=== PATIENT | female | born 2000 | race Caucasian/White ===

== ENCOUNTER 2021-01-08 22:18 | Emergency (ER) | payer OTHER, SELFPAY ==
[2021-01-08 22:19] VITALS: BP 144/80; PULSE 97; RESP 16; TEMP 36.2; O2SAT 97; BMI 27.4
--- NOTE | 2021-01-08 22:45 | RAD_ITS ---
STUDY: X-RAY - RIGHT RADIUS AND ULNA REASON FOR EXAM: Female, 20 years old. bruising and pain in right forearm after wrestling and volleyball today. TECHNIQUE: 2 view(s) of the forearm. COMPARISON: None. FINDINGS: There is no demonstrated soft tissue swelling. Normal visualized radius. Normal visualized ulna. RAD/Forearm 2 Views IMPRESSION: Normal x-ray examination of the radius and ulna. Electronically Signed: Jaspal Sorto MD at 23:08 EDT , Service support ,
--- NOTE | 2021-01-08 23:28 | ED.DCSUM_ITS ---
- ER Visit Summary Date of Service: 01/08/21 Chief Complaint: Roughhousing History of Present Illness: The patient is a 20 F patient presents with right forearm pain after roughhousing and playing volleyball. There is bruising to the area. Physical Examination: Ecchymosis to her mid right forearm with mild tenderness to the area. Compartments soft. Neurovascular intact distally. No deformity. Skin intact. Test Results: X-rays reviewed by the radiologist and myself are negative. Emergency Department Course and Treatment: Patient declined pain meds. X-rays negative. Patient will be discharged. She was given a note for school. Rest, ice, elevate. [id number] remedies for pain. Treatment Plan: As above Disposition: Discharge Impression: Contusion right forearm This note was generated with [employer] dictation software. It may contain incorrect words, spelling, and punctuation that were not noted in review of the chart prior to signing ED Disposition - Plan for ED Patient: Referrals: NOT,DEFINED [Primary Care Provider] -
--- NOTE | 2021-01-08 23:29 | ED.DEP ---
ED Disposition - Plan for ED Patient: Instructions: ED Contusion, Upper Extremity Referrals: NOT,DEFINED [Primary Care Provider] -
[2021-01-08 23:44] VITALS: PULSE 91; RESP 15; O2SAT 98
== END 2021-01-08 23:44 | disposition home or self-care (01) ==
LOC: ED 23:38
PROVIDERS: Emergency Provider Emergency Medicine
DX: S50.11XA Contusion of right forearm, initial encounter (principal); X58.XXXA Exposure to other specified factors, initial encounter; Y93.72 Activity, wrestling; Y93.68 Activity, volleyball (beach) (court); Y92.9 Unspecified place or not applicable
CPT/HCPCS: 73090; 99282

== ENCOUNTER 2022-08-12 13:55 | Outpatient (CLI) | payer BC, SELFPAY ==
--- NOTE | 2022-08-12 14:05 | CT_ITS ---
STUDY: CT BRAIN WITHOUT CONTRAST REASON FOR EXAM: Female, 22 years old. SYNCOPE. Seizure. RADIATION DOSAGE (If Supplied By Facility): CTDIvol = ( 47.06 ) mGy, DLP = ( 872.68 ) mGycm TECHNIQUE: Transaxial CT imaging of the brain was performed without administration of intravenous contrast material. Individualized dose optimization techniques were used for this CT. COMPARISON: No relevant priors. FINDINGS: Normal soft tissue structures. Normal calvarium. Normal size ventricles and extra-axial spaces for the patient''s age. Normal white matter tracts of the cerebral hemispheres. Normal basal ganglia and thalami. Normal brainstem. Normal cerebellum. There is no intracranial hemorrhage. There are no findings of an acute ischemic infarction. Normal visualized paranasal sinuses. CT/Brain/Head without Contrast IMPRESSION: Normal unenhanced CT scan of the brain. Electronically Signed: Asif Puentes MD at 14:41 EST ,
== END 2022-08-12 23:59 | disposition home or self-care (01) ==
LOC: CT 14:03
PROVIDERS: Visit Provider Family Medicine
DX: G40.89 Other seizures (principal); R55 Syncope and collapse
CPT/HCPCS: 70450

== ENCOUNTER → 2022-09-02 | Outpatient (CLI) | payer BC, SELFPAY ==
--- NOTE | 2022-09-02 13:02 | ECHOD_ITS ---
Reason For Study: SEIZURES Procedure This was a 2D Doppler, Color Flow transthoracic echocardiogram. Exam performed in department. Left Ventricle Normal LV size. Left ventricular systolic function is normal. The estimated ejection fraction is 55 %. Normal diastology for age. No regional wall motion abnormalities noted. Right Ventricle Normal RV size. Normal systolic function. Atria Normal left atrium. Normal right atrium. Mitral Valve Normal mitral valve. Tricuspid Valve Normal tricuspid valve. Aortic Valve Trisinus/trileaflet aortic valve. Normal aortic valve. Pulmonic Valve Normal pulmonic valve. Great Vessels Normal aortic root. The pulmonary artery is normal size. Normal inferior vena cava. Pericardium/Pleural No pericardial effusion. MMode/2D Measurements & Calculations LVIDd: 4.9 cm IVSd: 0.82 cm Ao root diam: 3.1 cm LVIDs: 3.3 cm LVPWd: 0.94 cm RVDd: 2.7 cm FS: 31.5 % LAV(MOD-bp): 26.3 ml LVAd ap4: 32.4 cm2 SV(MOD-sp4): 69.5 ml LAV(MOD-bp) Indexed: 17.0 ml/m2 LVLd ap4: 8.0 cm LAV(MOD-sp2): 25.9 ml EDV(MOD-sp4): 110.2 ml LAV(MOD-sp4): 23.4 ml EDV(sp4-el): 111.8 ml LVAs ap4: 18.1 cm2 LVLs ap4: 6.8 cm ESV(MOD-sp4): 40.7 ml ESV(sp4-el): 40.5 ml EF(MOD-sp4): 63.1 % EF(sp4-el): 63.7 % SV(sp4-el): 71.3 ml LA A4 area: 12.4 cm2 LA dimension(2D): 3.1 cm RA A4 area: 10.3 cm2 Time Measurements MV dec time: 0.18 sec Doppler Measurements & Calculations MV E max riaz: 93.5 cm/sec Lat Peak E' Riaz: 17.5 cm/sec Med Peak E' Riaz: 14.8 cm/sec MV A max riaz: 69.7 cm/sec E/E' lat: 5.4 E/E' med: 6.3 MV E/A: 1.3 Ao V2 max: 147.9 cm/sec LV V1 max: 116.9 cm/sec PA V2 max: 112.9 cm/sec Ao max P.7 mmHg LV V1 max P.5 mmHg ECHO/Echo Complete Interpretation Summary Normal LV size. Left ventricular systolic function is normal. The estimated ejection fraction is 55 %. Normal diastology for age. Structurally normal valves. Ordering Physician: Terry Nelson Referring Physician: Terry Nelson Performed By: Elsa Savage RDCS
--- NOTE | 2022-09-02 13:02 | CDU_ITS ---
Reason For Study: SYNCOPE/COLLAPSE, OTHER SEIZURES Rt. Velocities/BP Lt. Velocities/BP Prox CCA 94.8/14.5 cm/sec. Prox CCA 137.9/18.8 cm/sec. Mid CCA 98.1/24.5 cm/sec. Mid CCA 114.6/23.7 cm/sec. Dist CCA 91.6/25.6 cm/sec. Dist CCA 93.7/21.2 cm/sec. Prox ICA 88.8/20.0 cm/sec. Prox ICA 60.1/20.4 cm/sec. Mid ICA 66.7/28.6 cm/sec. Mid ICA 93.0/27.0 cm/sec. Dist ICA 94.9/34.8 cm/sec. Dist ICA 86.4/36.9 cm/sec. Rt. ICA/CCA = 94.9/98.1=1.0. 93.0/114.6=0.8. Prox ECA 97.1/12.4 cm/sec. Prox ECA 49.7/11.0 cm/sec. Rt. Vert. 46.6/11.6 cm/sec. Lt. Vert. 72.1/11.0 cm/sec. Right Extracranial There is no significant atherosclerotic plaque noted in the right common carotid artery. There is no significant atherosclerotic plaque noted in the right internal carotid artery. There is no significant atherosclerotic plaque noted in the right external carotid artery. Antegrade flow is noted in the right vertebral artery. Left Extracranial There is no significant atherosclerotic plaque noted in the left common carotid artery. There is no significant atherosclerotic plaque noted in the left internal carotid artery. There is no significant atherosclerotic plaque noted in the left external carotid artery. Antegrade flow is noted in the left vertebral artery. VL/Carotid Duplex Ultrasound Interpretation Summary Normal right extracranial internal carotid. Normal left extracranial internal carotid. Patent and antegrade vertebrals bilaterally. Ordering Physician: Omar, Terry Referring Physician: Terry Nelson Performed By: Elissa Bullock RDCS, RVT
== END | disposition home or self-care (01) ==
LOC: CVS 13:01
PROVIDERS: Referring Provider Family Medicine; Visit Provider Family Medicine
DX: R55 Syncope and collapse (principal); I65.21 Occlusion and stenosis of right carotid artery
CPT/HCPCS: 93306; 93880